=== PATIENT | male | born 1975 | race Caucasian/White ===

== ENCOUNTER 2022-08-23 09:25 | Day surgery (SDC) | payer OTHER ==
[~2022-08-23] VITALS: Ht 175.3 cm; Wt 97.1 kg
[2022-08-23] MEDS ORDERED: diphenhydrAMINE 50 MG/ML VIAL ONE (10:40)
[2022-08-23] MEDS ORDERED: MIDAZOLAM 5 MG/5 ML VIAL ONE (10:41)
[2022-08-23] MEDS ORDERED: fentaNYL citrate 0.05 MG/ML VIAL ONE (10:41)
[2022-08-23] MEDS ORDERED: fentaNYL citrate 0.05 MG/ML VIAL IVP ONE (12:45)
[2022-08-23] MEDS ORDERED: MIDAZOLAM 2 MG/2 ML VIAL IV ONE (12:45)
[2022-08-23] MEDS ORDERED: diphenhydrAMINE 50 MG/ML VIAL IVP ONE (12:45)
== END 2022-08-23 13:36 | disposition home or self-care (01) ==
LOC: MDS 09:25 → MMU 09:26 → MDS 13:36
PROVIDERS: ATTEND Internal Medicine Gastroenterology
DX: Z12.11 Encounter for screening for malignant neoplasm of colon (principal); D12.2 Benign neoplasm of ascending colon; D12.4 Benign neoplasm of descending colon; I10 Essential (primary) hypertension; E78.5 Hyperlipidemia, unspecified; E11.9 Type 2 diabetes mellitus without complications; K21.9 Gastro-esophageal reflux disease without esophagitis; Z98.890 Other specified postprocedural states; Z79.899 Other long term (current) drug therapy
CPT/HCPCS: 45380; 45385; J1200; J2250; J3010